=== PATIENT | female | born 1955 | race African-American/Black ===

== ENCOUNTER → 2021-09-06 | Outpatient (CLI) | payer MEDICARE ==
--- NOTE | 2021-09-06 17:47 | KCIC ---
EXAM: AP, lateral and oblique views of bilateral knees DATE: 09/06/2021 3:15 PM INDICATION: Reason: Bilateral knee pain. / Spl. Instructions: Pain for 6 months, evaluate for arthrit is. / History: COMPARISON: No Prior FINDINGS: Right knee: No acute fracture or dislocation. No joint effusion. Trace medial compartment joint space narrowing with small medial osteophytes. Subtle sclerosis distal right femur possibly from calcified enchondrom a without aggressive features. Left knee: No acute fracture or dislocation. Mild medial compartment joint space narrowing with small osteophytes. No knee joint effusion. IMPRESSION: Mild degenerative changes both knees medial compartment with small osteophytes. No acute fracture or dislocation. Electronically signed by: Nelson Hernández MD (09/06/2021 5:44 PM) [id number]
== END ==
LOC: KCIC 14:35
PROVIDERS: ATTEND Family Medicine
DX: M17.0 Bilateral primary osteoarthritis of knee (principal); M25.762 Osteophyte, left knee; M25.761 Osteophyte, right knee
CPT/HCPCS: 73562-50